=== PATIENT | female | born 1990 | race Caucasian/White ===

== ENCOUNTER 2021-05-04 11:24 | Outpatient (CLI) | payer OTHER | END 2021-05-04 11:50 | disposition home or self-care (01) | LOC: NST 11:24 | PROVIDERS: ATTEND Obstetrics & Gynecology Maternal & Fetal Medicine | DX: Z34.83 Encounter for supervision of other normal pregnancy, third trimester (principal) ==

== ENCOUNTER 2021-06-01 12:00 | Inpatient (IN) | payer OTHER ==
[~2021-06-01] VITALS: Ht 157.5 cm; Wt 83.9 kg
[2021-06-06] MEDS ORDERED: PRENATAL CAPLE1 EAC1 (12:44)
[2021-06-07] MEDS ORDERED: ONDANSETRON HCL4 MG (10:20)
[2021-06-07] MEDS ORDERED: AZELASTINE137 MCG/0. (10:21)
== END 2021-06-08 11:42 | disposition home or self-care (01) | DRG 807 ==
LOC: LDR 06-06 12:14 → OB/GYN 06-06 12:14 → SURH 06-16 12:00
PROVIDERS: ADMIT Obstetrics & Gynecology; ATTEND Obstetrics & Gynecology
PROC: 10E0XZZ Delivery of Products of Conception, External Approach (ICD-10-PCS; principal; 2021-06-06)
PROC: 0W8NXZZ Division of Female Perineum, External Approach (ICD-10-PCS; 2021-06-06)
PROC: 4A1HXCZ Monitoring of Products of Conception, Cardiac Rate, External Approach (ICD-10-PCS; 2021-06-06)
DX: O80 Encounter for full-term uncomplicated delivery (principal); Z37.0 Single live birth; Z3A.38 38 weeks gestation of pregnancy; Z20.822 Contact with and (suspected) exposure to COVID-19

== ENCOUNTER → 2024-07-10 | Emergency (ER) | payer OTHER ==
[~2024-07-10] VITALS: Ht 157.5 cm; Wt 70.3 kg
[~2024-07-10] MED LIST: AZELASTINE137 MCG/0.; DEXAMETHASONE SODIUM PHOSPHATE 4 MG/ML VIAL IM ONE; DEXAMETHASONE SODIUM PHOSPHATE 4 MG/ML VIAL ONE; DIPHENHYDRAMINE HCL 50 MG/ML VIAL 1ML IM ONE; DIPHENHYDRAMINE HCL 50 MG/ML VIAL 1ML ONE; ONDANSETRON HCL4 MG; PRENATAL CAPLE1 EAC1
== END | disposition home or self-care (01) ==
LOC: ER 08:26
DX: L25.9 Unspecified contact dermatitis, unspecified cause (principal); R21 Rash and other nonspecific skin eruption; Z88.0 Allergy status to penicillin; Z91.013 Allergy to seafood; Z91.018 Allergy to other foods